=== PATIENT | male | born 2005 | race Caucasian/White ===

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

== ENCOUNTER 2023-05-11 19:49 | Emergency (ER) | payer OTHER ==
[2023-05-11 19:56] VITALS: BP 139/89; PULSE 77; RESP 16; TEMP 98.6; BMI 36.0
== END 2023-05-11 21:54 | disposition home or self-care (01) ==
LOC: JER 19:49 → JERFT 19:49
PROC: 0HQGXZZ Repair Left Hand Skin, External Approach (ICD-10-PCS; principal; 2023-05-11)
DX: S61.411A Laceration without foreign body of right hand, initial encounter (principal); W26.8XXA Contact with other sharp object(s), not elsewhere classified, initial encounter
CPT/HCPCS: 99282-25

== ENCOUNTER 2023-05-18 17:25 | Emergency (ER) | payer OTHER ==
[2023-05-18 17:41] VITALS: BP 124/75; PULSE 78; RESP 17; TEMP 98; BMI 35.2
== END 2023-05-18 18:30 | disposition home or self-care (01) ==
LOC: JER 17:25 → JERFT 17:25
DX: Z48.02 Encounter for removal of sutures (principal)
CPT/HCPCS: 99281-25